=== PATIENT | female | born 1985 | race Caucasian/White ===

== ENCOUNTER 2019-07-19 23:01 | Emergency (ER) | payer OTHER ==
[~2019-07-19] VITALS: Ht 172.7 cm; Wt 86.6 kg
[2019-07-19] MEDS ORDERED: PROCHLORPERAZINE 5 MG/ML, 2ML IVPush ONE (23:30)
[2019-07-19] MEDS ORDERED: DIPHENHYDRAMINE 50 MG/ML, 1ML IVPush ONE (23:30)
[2019-07-19] MEDS ORDERED: KETOROLAC 30 MG/1 ML IVPush ONE (23:30)
[2019-07-19] MEDS ORDERED: DIPHENHYDRAMINE 50 MG/ML, 1ML ONE (23:35)
[2019-07-19] MEDS ORDERED: PROCHLORPERAZINE 5 MG/ML, 2ML ONE (23:35)
[2019-07-19] MEDS ORDERED: KETOROLAC 30 MG/1 ML ONE (23:35)
--- NOTE | 2019-07-20 00:26 | NUR ---
Pt reports her headache has improved after meds.
[2019-07-20 00:44] VITALS: BP 135/81
== END 2019-07-20 00:55 | disposition home or self-care (01) ==
LOC: ED 07-20
DX: G43.009 Migraine without aura, not intractable, without status migrainosus (principal)
CPT/HCPCS: 96374; 96375; 99285; J0780; J1200; J1885

== ENCOUNTER 2020-09-24 16:57 | Emergency (ER) | payer OTHER ==
[~2020-09-24] VITALS: Ht 167.6 cm; Wt 79.6 kg
--- NOTE | 2020-09-24 17:12 | NUR ---
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
[2020-09-24 17:39] LABS: BASOPHILS % (AUTO) 1 % (0-1); EOSINOPHILS % (AUTO) 2 % (1-7); LYMPHOCYTES % (AUTO) 40 % (22-44); MEAN CORPUSCULAR HEMOGLOBIN 33.7 pg (27.0-34.8); MEAN CORPUSCULAR HGB CONC 35.1 g/dL (32.4-35.8); MEAN PLATELET VOLUME 8.9 fL (7.4-10.4); MONOCYTES % (AUTO) 10 % (2-9); NEUTROPHILS % (AUTO) 47 % (42-75); PLATELET COUNT 211 x10^3/uL (130-400); RED BLOOD COUNT 4.29 x10^6/uL (3.82-5.3); RED CELL DISTRIBUTION WIDTH 11.9 % (9.6-15.2)
--- NOTE | 2020-09-24 17:47 | NUR ---
TASK RN: 35 YR OLD FEMALE HERE WITH C/O "I THINK I PASSED OUT EARLIER AND I'M HAVING A HARD TIME TAKING FULL BREATHS AND I'M CATARINO DISORIENTED" "I GOT REALLY LIGHTHEADED, I EYAL REMEMBER GOING TO THE BED, THEN I DONT KNOW WHAT HAPPENED" PT TEARFUL AT TIMES. PT ABLE TO AMB TO BR WITH STEADY GAIT AND PROVIDE URINE SPECIMAN. PTS AT BEDSIDE. PT PLACE ON MONITORING EQUIPMENT.
[2020-09-24 17:50] LABS: ALANINE AMINOTRANSFERASE 55 U/L (12-78); ALBUMIN 3.6 g/dL (3.4-5.0); ANION GAP 8 mmol/L (5-15); CHLORIDE 109 mmol/L (98-107); CREATININE 0.77 mg/dL (0.55-1.02)
[2020-09-24 17:55] LABS: ALKALINE PHOSPHATASE 70 U/L (45-117); BILIRUBIN,TOTAL 0.3 mg/dL (0.2-1.0); TOTAL PROTEIN 6.9 g/dL (6.4-8.2)
--- NOTE | 2020-09-24 18:19 | NUR ---
ua sent with reassessment- remains sob. however wob/pox wnl Patient admits stress/anxiety maybe contributing
[2020-09-24 18:38] LABS: MICROSCOPIC INDICATED
[2020-09-24 19:28] VITALS: BP 136/88
--- NOTE | 2020-09-24 19:39 | NUR ---
BREAK RN: Patient given discharge instructions and they have confirmed that they understand the instructions. Patient ambulatory with steady gait.
== END 2020-09-24 19:41 | disposition home or self-care (01) ==
LOC: ED 18:24
DX: R42 Dizziness and giddiness (principal); R55 Syncope and collapse; R06.02 Shortness of breath; G89.29 Other chronic pain; R94.31 Abnormal electrocardiogram [ECG] [EKG]
CPT/HCPCS: 36415; 71045; 80053; 81001; 84703; 85025; 85379; 87086; 93005; 99285